=== PATIENT | female | born 1995 | race Two or more races ===

== ENCOUNTER 2016-12-25 17:22 | Emergency (ER) | payer OTHER ==
[2016-12-25] MEDS ORDERED: ACETAMINOPHEN 500 MG TABLET ONE (17:53)
[2016-12-25] MEDS ORDERED: DIPHENHYDRAMINE HCL 50 MG/1 ML VIAL ONE (18:45)
[2016-12-25] MEDS ORDERED: METOCLOPRAMIDE HCL 5 MG/ML 2ML VIAL ONE (18:45)
== END 2016-12-25 19:50 | disposition home or self-care (01) ==
LOC: ED 17:22
DX: O26.891 Other specified pregnancy related conditions, first trimester (principal); R51 Headache; Z3A.12 12 weeks gestation of pregnancy
CPT/HCPCS: 96375 ×2; 99283 ×2; 96361; 96365; J1200; J2765; A9270